=== PATIENT | male | born 1980 | race African-American/Black ===

== ENCOUNTER 2017-06-07 10:03 | Emergency (ER) | payer SELFPAY ==
[2017-06-07] MEDS ORDERED: Nitroglycerin 2% Ointment 1 INCH/1 GM Packet ONE (10:22)
[2017-06-07 10:31] LABS: #Basophils 0.1 thou/uL (0.0-0.2); #Lymphocytes 0.9 thou/uL (1.20-3.40); #Monocytes 0.5 thou/uL (0.11-0.59); #Neutrophils 3.5 thou/uL (1.40-6.50); %Basophils 1.2 % (0.0-1.0); %Lymphocytes 17.9 % (21.0-51.0); %Monocytes 10.5 % (0.0-10.0); %Neutrophils 70.4 % (42.0-75.0); Hemoglobin 15.8 g/dL (14.0-18.0); Mean Corpuscular HGB CONC 35.1 g/dL (32.0-36.0); Mean Corpuscular Hemoglobin 29.5 pg (27.0-31.0); Mean Platelet Volume 5.5 fL (7.4-10.4); Platelet Count 317 thou/uL (130-400); RBC Distribution Width 12.1 % (11.5-14.5); Red Blood Cell (RBC) Count 5.34 mill/uL (4.70-6.10)
[2017-06-07 10:38] LABS: ALT (SGPT) 22 U/L (8-55); AST (SGOT) 22 U/L (5-34); Albumin 4.5 g/dL (3.5-5.0); Alkaline Phosphatase 46 U/L (40-150); Anion Gap 17 mmol/L (10-20); BUN (Urea Nitrogen) 19 mg/dL (8.9-20.6); Bilirubin, Total 0.3 mg/dL (0.2-1.2); Calc. Creatinine Clearance 0 mL/min (70-130); Calcium 9.9 mg/dL (7.8-10.44); Carbon Dioxide 22 mmol/L (22-29); Chloride 107 mmol/L (98-107); Estimated GFR-MDRD Greater than 90; Globulin 4.2 g/dL (2.4-3.5); Glucose 112 mg/dL (70-105); Potassium 4.5 mmol/L (3.5-5.1); Protein, Total 8.7 g/dL (6.0-8.3); Sodium 141 mmol/L (136-145)
[2017-06-07 10:40] LABS: CKMB 4.3 ng/mL (0-6.6); Troponin I Less than 0.010 ng/mL (< 0.028)
[2017-06-07] MEDS ORDERED: predniSONE 20 MG TAB ONE (11:41)
[2017-06-07] MEDS ORDERED: Lisinopril 20 MG TAB ONE (11:41)
--- NOTE | 2017-06-07 15:41 | RAD ---
PORTABLE CHEST: Date: 06-07-17 FINDINGS: AP portable film at 1002 shows a normal sized heart and clear lungs. No infiltrate or effusion was se en. There is no vascular congestion or edema. The trachea is midline. IMPRESSION: No acute findings. POS: HOME
== END 2017-06-07 11:50 | disposition home or self-care (01) ==
LOC: BURERS 10:03
DX: J98.01 Acute bronchospasm (principal); I10 Essential (primary) hypertension; Z87.891 Personal history of nicotine dependence
CPT/HCPCS: 71045; 80053; 82553; 83880; 84484; 85025; 85379; 93005; 94640; 94760; 96360; J7506; J7620

== ENCOUNTER 2017-12-06 16:08 | Emergency (ER) | payer OTHER, SELFPAY ==
[2017-12-06 16:40] LABS: #Lymphocytes 1.3 thou/uL (1.20-3.40); #Monocytes 0.6 thou/uL (0.11-0.59); #Neutrophils 5.4 thou/uL (1.40-6.50); %Basophils 0.5 % (0.0-1.0); %Lymphocytes 17.3 % (21.0-51.0); %Monocytes 7.6 % (0.0-10.0); %Neutrophils 74.6 % (42.0-75.0); Hemoglobin 14.9 g/dL (14.0-18.0); Mean Corpuscular HGB CONC 33.5 g/dL (32.0-36.0); Mean Corpuscular Hemoglobin 28.7 pg (27.0-31.0); Mean Corpuscular Volume 85.6 fL (78.0-98.0); Mean Platelet Volume 6.3 fL (7.4-10.4); Platelet Count 307 thou/uL (130-400); RBC Distribution Width 12.3 % (11.5-14.5); Red Blood Cell (RBC) Count 5.21 mill/uL (4.70-6.10); White Blood Cell (WBC) Count 7.3 thou/uL (4.8-10.8)
[2017-12-06] MEDS ORDERED: Fentanyl 100 MCG/2 ML VIAL ONE (16:50)
[2017-12-06 16:55] LABS: ALT (SGPT) 20 U/L (8-55); AST (SGOT) 23 U/L (5-34); Albumin 4.5 g/dL (3.5-5.0); Alkaline Phosphatase 38 U/L (40-150); Anion Gap 13 mmol/L (10-20); BUN (Urea Nitrogen) 17 mg/dL (8.9-20.6); Bilirubin, Total 0.3 mg/dL (0.2-1.2); Calc. Creatinine Clearance 0 mL/min (70-130); Carbon Dioxide 25 mmol/L (22-29); Chloride 109 mmol/L (98-107); Estimated GFR-MDRD 81; Globulin 3.4 g/dL (2.4-3.5); Glucose 103 mg/dL (70-105); Potassium 4.2 mmol/L (3.5-5.1); Protein, Total 7.9 g/dL (6.0-8.3); Sodium 143 mmol/L (136-145)
[2017-12-06] MEDS ORDERED: Bacitracin Zinc 1 Packet ONE (17:35)
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
== END 2017-12-06 17:36 | disposition home or self-care (01) ==
LOC: BURERS 16:08
DX: S21.119A Laceration without foreign body of unspecified front wall of thorax without penetration into thoracic cavity, initial encounter (principal); Z87.891 Personal history of nicotine dependence
CPT/HCPCS: 12032; 71260; 74177; 80053; 85025; 96374; J3010

== ENCOUNTER 2019-02-02 09:22 | Emergency (ER) | payer OTHER ==
[2019-02-02] MEDS ORDERED: AMOXicillin 250 MG CAP ONE (09:54)
[2019-02-02] MEDS ORDERED: predniSONE 20 MG TAB ONE (09:54)
== END 2019-02-02 09:53 | disposition home or self-care (01) ==
LOC: BURERS 09:22
DX: J20.9 Acute bronchitis, unspecified (principal); Z87.891 Personal history of nicotine dependence
CPT/HCPCS: 94640; J7512; J7620

== ENCOUNTER 2019-05-07 17:11 | Emergency (ER) | payer OTHER | END 2019-05-07 18:12 | disposition home or self-care (01) | LOC: BURERS 17:11 | DX: J06.9 Acute upper respiratory infection, unspecified (principal); Z87.891 Personal history of nicotine dependence | CPT/HCPCS: 99283 ==

== ENCOUNTER 2019-05-12 15:13 | Emergency (ER) | payer OTHER ==
--- NOTE | 2019-05-12 20:34 | RAD ---
PORTABLE CHEST: Date: 05-12-2019 An AP portable film at 1556 is compared with a 06-07-17 study. FINDINGS: The heart is normal in size. The lungs are clear. There is no current sign of pneumonia or pleural ef fusion. The right hilum is slightly prominent, more so than before. I cannot exclude some adenopathy here. The exam is otherwise unremarkable. IMPRESSION: No acute findings. Slight right hilar prominence. Depending upon how the patient progresses, one may wish to do a delayed follow up chest film for a second look at the hilar region. Code T POS: HOME
== END 2019-05-12 17:00 | disposition home or self-care (01) ==
LOC: BURERS 15:13
DX: J18.9 Pneumonia, unspecified organism (principal); H66.92 Otitis media, unspecified, left ear; Z87.891 Personal history of nicotine dependence
CPT/HCPCS: 71045; 87804; U0001

== ENCOUNTER 2021-02-07 21:48 | Emergency (ER) | payer OTHER, SELFPAY ==
[2021-02-07] MEDS ORDERED: Acetaminophen 500 MG TAB ONE (22:25)
[2021-02-07] MEDS ORDERED: Ibuprofen 800 MG TAB ONE (22:32)
[2021-02-08 19:34] LABS: SARS-CoV-2 PCR by NAA DETECTED (NotDetected)
== END 2021-02-07 22:42 | disposition home or self-care (01) ==
LOC: BURERS 21:48
DX: U07.1 COVID-19 (principal); B34.9 Viral infection, unspecified; Z87.891 Personal history of nicotine dependence
CPT/HCPCS: 87804; 99283; U0003; U0005